=== PATIENT | female | born 1955 | race Caucasian/White ===

== ENCOUNTER 2023-03-31 13:45 | Emergency (ER) | payer OTHER, SELFPAY ==
--- NOTE | 2023-03-31 13:45 | ECG_ITS ---
APPROVED REPORT Exam: Resting ECG HR:60 bpm ECG Measurements Heart Rate 60 AXES DE 202 P 58 QRSd 75 QRS 9 QT 385 T 57 QTc 386 Conclusion SINUS RHYTHM LOW QRS VOLTAGE IN PRECORDIAL LEADS [QRS DEFLECTION < 1.0 mV IN CHEST LEADS] POSSIBLE ANTERIOR MYOCARDIAL INFARCTION , PROBABLY OLD [30 ms Q WAVE IN V3/V4, OR R < 0.2 mV IN V4] BORDERLINE ECG UNCONFIRMED REPORT Electronically signed by : Kj Loyola MD 03/31/2023 17:46:36
[2023-03-31 13:56] VITALS: BP 166/82; PULSE 62; RESP 16; TEMP 36.7; O2SAT 96; BMI 36.3
[2023-03-31 14:00] VITALS: BP 136/74; PULSE 58; RESP 13; O2SAT 95
--- NOTE | 2023-03-31 14:07 | PC.NURSE ---
DR RANGEL AT BEDSIDE
--- NOTE | 2023-03-31 14:16 | XR_ITS ---
FINAL REPORT CLINICAL HISTORY: Shortness of breath, chest pressure COMPARISON: None FINDINGS: A single portable view of the chest was obtained. The heart size and pulmonary vascularity are within normal limits. The mediastinum is within normal limits. No acute pulmonary abnormality is identified. The bony thorax is intact. IMPRESSION: No active cardiopulmonary disease. Reviewed, Interpreted and Dictated by Micha Grimaldo III, MD Transcribed by Yvette Lucero Authenticated and [facility]
--- NOTE | 2023-03-31 14:19 | PC.NURSE ---
RAD at BS
[2023-03-31] MEDS: ASPIRIN 81MG CHEWABLE TABLET 324 MG PO (14:22)
[2023-03-31 14:28] LABS: Basophils # 0.1 K/mm3 (0-0.2); Basophils % 0.8 % (0.1-2.0); Eosinophils # 0.2 K/mm3 (0.0-0.4); Hematocrit 43.4 % (37.0-47.0); Lymphocytes # 3.5 K/mm3 (0.7-4.5); Lymphocytes % 46.2 % (10-50); Mean Corpuscular HGB Conc 34.5 g/dL (31.8-35.4); Mean Corpuscular Volume 92.6 fl (81-99); Mean Platelet Volume 9.2 fl (7.4-10.4); Monocytes # 0.5 K/mm3 (0.1-1.0); Monocytes % 7.2 % (1.7-9.3); Neutrophils # 3.2 K/mm3 (1.8-7.8); Neutrophils % 42.7 % (37.0-80.0); Platelet Count 255 K/mm3 (142-424); Red Blood Count 4.69 M/mm3 (4.20-5.40); Red Cell Distribution Width 13.2 % (11.5-17.5); White Blood Count 7.5 K/mm3 (4.8-10.8)
--- NOTE | 2023-03-31 14:29 | HMH.EDCP ---
Discharge Plan Disposition Patient Disposition: Home, Self-Care Chief Complaint: Chest Pain Prescriptions Prescriptions: No Action lisinopril 20 mg Tablet 20 mg PO DAILY aspirin [Aspir-81] 81 mg Tablet,Delayed Release (Dr/Ec) 81 mg PO DAILY estradiol 1 mg Tablet 1 mg PO DAILY Rx Instructions: off 1 week; repeat cycle paroxetine HCl 20 mg Tablet 20 mg PO DAILY atorvastatin 40 mg Tablet 40 mg PO HS bisoprolol-hydrochlorothiazide 10-6.25 mg Tablet 1 tab PO DAILY dicyclomine 20 mg Tablet 20 mg PO BID tizanidine 2 mg Capsule 2 mg PO DAILY Referrals Follow up/Referrals: Oseas Nur MD [Staff Physician] - See instructions Activity Restrictions/Add. Instructions Additional Instructions/Restrictions: Follow-up with cardiology, information here. Talk to them about likelihood of needing stress test given your symptoms. Call your family doctor to establish care for this visit to the emergency department and schedule follow-up within 48 hours to ensure improvement. If you have any worsening of your condition or any other concerning signs or symptoms, return to the emergency department or your primary care doctor for further evaluation. Clinical Impressions Clinical Impression: Chest pressure, Shortness of breath Discharge ED Provider: Grzegorz Rodríguez [facility] General Chief Complaint: Chest Pain Stated Complaint: Chest Pain Time Seen by Provider: 03/31/23 13:50 Mode of Arrival: Ambulatory Source of Information: Spouse Limitations: No Limitations Description of Symptoms (Recalled from ER Triage Doc. by RN): Pt. states she started having chest pain and a headache yesterday around noon. She felt light headed and took her blood pressure which was slightly elevated and her blood sugar which was 114. She continued ti have intermintint chest pain and headache the remainder of the night and into today. She states the pain is sharp and radiates across her chest. History of Present Illness HPI narrative: 67-year-old history of hypertension, anemia hypothyroidism presenting with chest pressure. States that she started having chest pain 1 day prior to arrival. Associated with headache. She took her blood pressure and it was elevated around 160, thought it might be her blood sugar, although she does not have diabetes, and ate peanut bar crackers. At that time, patient was at catholic and not exerting yourself. Associated with intermittent diaphoresis, nausea without vomiting. She is also feeling short of breath with exertion. Denies positional shortness of breath, PND, orthopnea, lower extremity swelling, or any other concerns. Related Data Home Medications Medication Instructions Recorded Confirmed aspirin 81 mg tablet,delayed 81 mg PO DAILY 03/31/23 03/31/23 release atorvastatin 40 mg tablet 40 mg PO HS 03/31/23 03/31/23 bisoprolol 10 1 tab PO DAILY 03/31/23 03/31/23 mg-hydrochlorothiazide 6.25 mg tablet dicyclomine 20 mg tablet 20 mg PO BID 03/31/23 03/31/23 estradiol 1 mg tablet 1 mg PO DAILY 03/31/23 03/31/23 lisinopril 20 mg tablet 20 mg PO DAILY 03/31/23 03/31/23 paroxetine HCl 20 mg tablet 20 mg PO DAILY 03/31/23 03/31/23 tizanidine 2 mg capsule 2 mg PO DAILY 03/31/23 03/31/23 Allergies Allergy/AdvReac Type Severity Reaction Status Date / Time No Known Allergies Allergy Verified 03/31/23 13:[address] [facility] Disclaimer: The information contained in this section may have been updated after the patient was seen, as this information can be updated by other users. Social History Smoking Status: Never smoker alcohol intake: never current occupational status: unemployed Travel in the last 8 weeks: None ROS Obtained: Yes All systems reviewed & no additional complaints except as documented Physical Exam General General appearance: alert Neck Neck exam: Present trachea midline Chest Chest inspection: Present normal inspection and symmetric chest wall rise Respiratory Respiratory exam: Present normal lung sounds bilaterally; Absent respiratory distress, wheezes, stridor, accessory muscle use or prolonged expiratory phase Cardiovascular Cardiovascular exam: Present regular rate and normal rhythm Extremities Exam Extremities exam: Absent edema Neurological Exam Neurological exam: Present alert, oriented X3 and CN II-XII intact Skin Skin exam: Present warm and dry; Absent cyanosis, diaphoresis or pallor HEART Score HEART Score HEART Score assessment performed?: Yes History (anamnesis): Slightly suspicious ECG: Normal Age: >65 years Risk factors: No known risk factors Troponin: </= normal limit HEART Score: 2 Critical Care Critical Care Time Critical Care Time: No Medical Decision Making Medical Records Medical records reviewed: Yes I reviewed the patient's medical records. Kishan Inquiry Pt receiving controlled substance: No Kishan was queried for this patient: No Vital Signs Vital Signs: 03/31/23 13:56 03/31/23 14:00 03/31/23 14:45 Temperature 98.0 F Temperature Source Oral Pulse Rate 58 L 56 L Pulse Rate [Right Brachial] 62 Respiratory Rate 16 13 15 Blood Pressure 136/74 130/65 Blood Pressure [Right Arm] 166/82 H Blood Pressure Mean 85 94 Blood Pressure Mean [Right Arm] 110 Blood Pressure Source [Right Arm] Automatic Cuff Blood Pressure Position [Right Arm] Sitting 02 Sat by Pulse Oximetry 96 95 95 Oxygen Delivery Method Room Air Lab Data Labs: Lab Results 03/31/23 13:50: WBC 7.5, RBC 4.69, Hgb 15.0, Hct 43.4, MCV 92.6, MCH 32.0 H, MCHC 34.5, RDW 13.2, Plt Count 255, MPV 9.2, Neut % (Auto) 42.7, Lymph % (Auto) 46.2, [place] % (Auto) 7.2, Eos % (Auto) 3.0, Baso % (Auto) 0.8, Neut # (Auto) 3.2, Lymph # (Auto) 3.5, [place] # (Auto) 0.5, Eos # (Auto) 0.2, Baso # (Auto) 0.1, Sodium 134 L, Potassium 4.3, Chloride 100, Carbon Dioxide 31 H, Anion Gap 7.3, BUN 17, Creatinine 0.80, Estimated Creat Clear 78, Estimated GFR 71, Est GFR ( Amer) 86, Glucose 94, Calcium 9.0, Total Bilirubin 0.3, AST 33, ALT 25, Alkaline Phosphatase 63, Troponin I < 0.01, Total Protein 7.2, Albumin 4.2, Globulin 3.0, Albumin/Globulin Ratio 1.4 03/31/23 13:50 03/31/23 13:50 Response Orders (Tests/Meds): ED MEDICATIONS Discontinued Medications Generic Name Dose Route Start Last Admin Trade Name Freq PRN Reason Stop Dose Admin Aspirin 324 mg 03/31/23 14:16 03/31/23 14:22 Aspirin 81mg Chewable Tablet PO 03/31/23 14:17 324 mg ONCE ONE Administration ORDERS Category Date Time Status CXR --portable [XR chest portable] Stat Exams 03/31/23 14:16 Completed CBC w/Auto Diff [Complete Blood Count Auto Diff] Stat Lab 03/31/23 13:50 Completed CMP [Comprehensive Metabolic Panel] Stat Lab 03/31/23 13:50 Completed Trop I [Troponin I] Stat Lab 03/31/23 13:50 Completed Troponin I Q3H Lab 03/31/23 17:30 Ordered Troponin I Q3H Lab 03/31/23 20:30 Ordered MDM Narrative Medical Decision Narrative: 67-year-old history of hypertension, anemia hypothyroidism presenting with chest pressure. States that she started having chest pain 1 day prior to arrival. Associated with headache. She took her blood pressure and it was elevated around 160, thought it might be her blood sugar, although she does not have diabetes, and ate peanut bar crackers. At that time, patient was at catholic and not exerting yourself. Associated with intermittent diaphoresis, nausea without vomiting. She is also feeling short of breath with exertion. Denies positional shortness of breath, PND, orthopnea, lower extremity swelling, or any other concerns. history was obtained via conversation with patient. On arrival, patient hemodynamically stable, alert, oriented x4, appropriate, GCS 15, moving all extremities spontaneously, pupils equal and reactive to light. Full physical exam performed and significant for well-appearing woman in no acute distress. Lungs clear to auscultation bilaterally. Patient does have systolic ejection murmur heard best in right upper sternal border that has minimal radiation to the carotids. No lower extremity edema. Abdomen soft, nontender. Differential includes bronchitis, allergies, valvular abnormality, reactive airway disease, ACS, PA, pneumothorax, PE, dissection, pneumothorax, aortic aneurysm, pneumonia, bronchitis, among others. Patient was given 325 mg aspirin, for symptomatic management and correction of underlying abnormalities. Workup independently interpreted and significant for negative CBC, negative troponin, nonactionable chemistry. Chest x-ray without acute cardiopulmonary airspace disease. See radiology read for full review of final results. Independent interpretation of EKG shows sinus rhythm [address] or T wave changes concerning for acute ischemia. MN, QRS, QT intervals within normal limits. Heart score 2 On reevaluation, patient resting comfortably bed. Given patient presentation, workup, history, this most likely represents stable angina versus other idiopathic shortness of breath. because patient at baseline without signs or symptoms of clinical decompensation, deemed appropriate for discharge. Results were relayed to patient who voiced understanding and were agreeable to outpatient management and follow up. At the time of discharge the patient was hemodynamically stable, tolerating PO, and mobilizing appropriately.
[2023-03-31 14:45] VITALS: BP 130/65; PULSE 56; RESP 15; O2SAT 95
[2023-03-31 14:46] LABS: Alanine Aminotransferase 25 U/L (12-78); Albumin Level 4.2 g/dl (3.5-5.0); Albumin/Globulin Ratio 1.4 (1.1-1.8); Alkaline Phosphatase 63 U/L (38-126); Anion Gap 7.3 mEq/L (5-15); Aspartate Amino Transferase 33 U/L (14-36); Bilirubin,Total 0.3 mg/dl (0.2-1.3); Blood Urea Nitrogen 17 mg/dl (7-17); Carbon Dioxide 31 mmol/L (22.0-30.0); Chloride 100 mmol/L (98-107); Creatinine Clearance Estimated 78 mL/min (50-200); Estimated Glomerular Filt Rate 71 ml/min (>60); GFR (African American) 86 ML/MIN (>60); Glucose 94 mg/dl (74-100); Potassium 4.3 mmoL/L (3.5-5.1); Sodium 134 mmol/L (136-145); Total Protein,Serum 7.2 g/dl (6.3-8.2)
--- NOTE | 2023-03-31 14:49 | PC.NURSE ---
Rounded on pt. No needs or complaints voiced. Call light within reach.
[2023-03-31 15:15] LABS: Troponin I < 0.01 ng/ml (0.00-0.034)
[2023-03-31 15:25] VITALS: BP 121/68; PULSE 55; RESP 16; TEMP 36.7; O2SAT 98
== END 2023-03-31 15:38 | disposition home or self-care (01) ==
PROVIDERS: Emergency Provider Emergency Medicine
DX: R07.9 Chest pain, unspecified (principal); R51.9 Headache, unspecified; R06.02 Shortness of breath; I10 Essential (primary) hypertension; E03.9 Hypothyroidism, unspecified
CPT/HCPCS: 71045; 80053; 84484; 85025; 93005; 99285

== ENCOUNTER 2023-04-02 15:25 | Outpatient (CLI) | payer OTHER, SELFPAY ==
--- NOTE | 2023-04-02 15:34 | CT_ITS ---
PROCEDURE INFORMATION: Exam: CTA Head With Contrast, Arteriography Exam date and time: 04/02/2023 4:21 PM Age: 67 years old Clinical indication: Pain; Headache; Additional info: R51.9 - headache, unspecified TECHNIQUE: Imaging protocol: Computed tomographic angiography of the head with contrast. Exam focused on the arteries. 3D rendering (Not supervised by radiologist): MIP and/or 3D reconstructed images were created by the technologist. Radiation optimization: All CT scans at this facility use at least one of these dose optimization techniques: automated exposure control; mA and/or kV adjustment per patient size (includes targeted exams where dose is matched to clinical indication); or iterative reconstruction. Contrast material: ISOVUE 370; Contrast volume: 100 ml; Contrast route: INTRAVENOUS (IV); COMPARISON: CT HEAD/BRAIN WO CON 04/02/2023 4:17 PM FINDINGS: ANTERIOR CIRCULATION: Right internal carotid artery: Mild calcification involving the right carotid siphon without stenosis. Right middle cerebral artery: No occlusion or significant stenosis. No aneurysm. Right anterior cerebral artery: No occlusion or significant stenosis. No aneurysm. Left internal carotid artery: Mild calcification involving the left carotid siphon without stenosis. Left middle cerebral artery: No occlusion or significant stenosis. No aneurysm. Left anterior cerebral artery: No occlusion or significant stenosis. No aneurysm. POSTERIOR CIRCULATION: Right vertebral artery: No occlusion or significant stenosis. No aneurysm. Left vertebral artery: No occlusion or significant stenosis. No aneurysm. Basilar artery: No occlusion or significant stenosis. No aneurysm. Right posterior cerebral artery: No occlusion or significant stenosis. No aneurysm. Left posterior cerebral artery: No occlusion or significant stenosis. No aneurysm. IMPRESSION: Unremarkable CTA of the intracranial circulation.
--- NOTE | 2023-04-02 15:34 | CT_ITS ---
PROCEDURE INFORMATION: Exam: CTA Neck With Contrast Exam date and time: 04/02/2023 4:21 PM Age: 67 years old Clinical indication: Pain; Headache; Additional info: Headache, R/O CVA, HTN TECHNIQUE: Imaging protocol: Computed tomographic angiography of the neck with contrast. Exam focused on the cervical segments of the vasculature. 3D rendering (Not supervised by radiologist): MIP and/or 3D reconstructed images were created by the technologist. Radiation optimization: All CT scans at this facility use at least one of these dose optimization techniques: automated exposure control; mA and/or kV adjustment per patient size (includes targeted exams where dose is matched to clinical indication); or iterative reconstruction. Contrast material: ISOVUE 370; Contrast volume: 100 ml; Contrast route: INTRAVENOUS (IV); COMPARISON: CT ANGIO HEAD 04/02/2023 4:21 PM FINDINGS: Limitations: Limited by artifact arising from metallic dental hardware/dental amalgam. Right common carotid artery: Calcification at the right common carotid bifurcation without hemodynamically significant stenosis. Right internal carotid artery: No stenosis of the extracranial segment. No dissection or occlusion. Right external carotid artery: No occlusion or stenosis of the origin. Left common carotid artery: Calcification and plaquing at the distal left common carotid artery without hemodynamically significant stenosis. Left internal carotid artery: No stenosis of the extracranial segment. No dissection or occlusion. Left external carotid artery: No occlusion or stenosis of the origin. Right vertebral artery: No stenosis. No dissection or occlusion. Left vertebral artery: Left vertebral artery is dominant. Soft tissues: Normal. No significant soft tissue swelling. Bones/joints: Degenerative change involving the spine. IMPRESSION: No hemodynamically significant stenosis. REFERENCES: NASCET CRITERIA. The degree of stenosis in the cervical segment of the internal carotid artery is based on NASCET criteria. Normal is no stenosis. Mild is less than 50% stenosis. Moderate is 50-69% stenosis. Severe is 70% to 99% stenosis. Total occlusion is no detectable patent lumen.
--- NOTE | 2023-04-02 15:50 | CT_ITS ---
PROCEDURE INFORMATION: Exam: CT Head Without Contrast Exam date and time: 04/02/2023 4:17 PM Age: 67 years old Clinical indication: Pain; Headache not specified; Additional info: ESPINOZA. . R/O CVA TECHNIQUE: Imaging protocol: Computed tomography of the head without contrast. Radiation optimization: All CT scans at this facility use at least one of these dose optimization techniques: automated exposure control; mA and/or kV adjustment per patient size (includes targeted exams where dose is matched to clinical indication); or iterative reconstruction. COMPARISON: No relevant prior studies available. FINDINGS: Brain: Age-related volume loss. Mild decreased attenuation of the supratentorial white matter is likely secondary to chronic microvascular ischemia. No acute intracranial hemorrhage, midline shift or intracranial mass effect. Cerebral ventricles: Ventriculomegaly is commensurate for degree of volume loss. Paranasal sinuses: Visualized sinuses are unremarkable. No fluid levels. Mastoid air cells: Visualized mastoid air cells are well aerated. Bones/joints: Unremarkable. No acute fracture. Soft tissues: Unremarkable. IMPRESSION: No acute intracranial abnormality.
[2023-04-02 16:53] LABS: Basophils % 0.6 % (0.1-2.0); Eosinophils # 0.2 K/mm3 (0.0-0.4); Eosinophils % 3.2 % (0.1-12.0); Hematocrit 42.4 % (37.0-47.0); Hemoglobin 14.3 g/dL (12.2-16.2); Lymphocytes # 3.4 K/mm3 (0.7-4.5); Lymphocytes % 48.7 % (10-50); Mean Corpuscular HGB Conc 33.9 g/dL (31.8-35.4); Mean Corpuscular Hemoglobin 31.6 pg (27.0-31.2); Mean Corpuscular Volume 93.2 fl (81-99); Mean Platelet Volume 9.2 fl (7.4-10.4); Monocytes # 0.5 K/mm3 (0.1-1.0); Monocytes % 6.4 % (1.7-9.3); Neutrophils # 2.9 K/mm3 (1.8-7.8); Neutrophils % 41.1 % (37.0-80.0); Platelet Count 223 K/mm3 (142-424); Red Blood Count 4.54 M/mm3 (4.20-5.40); Red Cell Distribution Width 13.4 % (11.5-17.5); White Blood Count 7.1 K/mm3 (4.8-10.8)
[2023-04-02 17:21] LABS: Chloride 98 mmol/L (98-107); Sodium 132 mmol/L (136-145)
[2023-04-02 17:22] LABS: Potassium 4.6 mmoL/L (3.5-5.1)
[2023-04-02 17:24] LABS: Alanine Aminotransferase 21 U/L (12-78); Albumin Level 3.9 g/dl (3.5-5.0); Alkaline Phosphatase 62 U/L (38-126); Anion Gap 10.6 mEq/L (5-15); Aspartate Amino Transferase 26 U/L (14-36); Bilirubin,Indirect 0.5 mg/dL (0.0-0.9); Bilirubin,Total 0.5 mg/dl (0.2-1.3); Bilirubin,Unconjugated 0.5 mg/dL (0.0-1.1); Blood Urea Nitrogen 18 mg/dl (7-17); Calcium 8.8 mg/dl (8.4-10.2); Carbon Dioxide 28 mmol/L (22.0-30.0); Cholesterol 203 mg/dl (140-200); Estimated Glomerular Filt Rate 71 ml/min (>60); GFR (African American) 86 ML/MIN (>60); Glucose 92 mg/dl (74-100); Total Protein,Serum 6.3 g/dl (6.3-8.2)
[2023-04-02 17:25] LABS: Chol/HDL Ratio 5.6 (1-3.5); HDL Cholesterol 36 mg/dl (40-60); Magnesium 1.7 mg/dl (1.6-2.3)
[2023-04-02 17:28] LABS: Triglycerides 464 mg/dl (30-150)
[2023-04-02 17:35] LABS: Direct LDL Cholesterol 81.51 mg/dL (100-129)
[2023-04-02 17:38] LABS: Troponin I < 0.01 ng/ml (0.00-0.034)
[2023-04-02 17:56] LABS: Thyroid Stimulating Hormone 2.69 uIU/mL (0.465-4.68)
[2023-04-02 17:57] LABS: Free T4 (Free Thyroxine) 0.62 ng/dl (0.78-2.19)
== END 2023-04-02 23:59 ==
LOC: RAD 15:26
PROVIDERS: Nurse Practitioner; Visit Provider Internal Medicine
DX: I10 Essential (primary) hypertension (principal); I20.89 Other forms of angina pectoris; R00.2 Palpitations; R06.00 Dyspnea, unspecified; R51.9 Headache, unspecified; R53.83 Other fatigue
CPT/HCPCS: 36415; 70450; 70496; 70498; 80048; 80061; 80076; 83735; 84439; 84443; 84484; 85025; 93225

== ENCOUNTER 2023-04-28 11:02 | Outpatient (CLI) | payer MEDICARE, SELFPAY ==
--- NOTE | 2023-04-28 11:02 | NM_ITS ---
APPROVED REPORT Exam: Nuclear Stress Test Indication: Chest pain, SOB, Fatigue, HTN, High cholesterol, Family history Patient Location: Outpatient Stress Tech: Love Sterling NM Tech:Belén Hermosillo, ARRT, RT (R)(N) Ht: 5 ft 3 in Wt: 205 lbs Bra Size: 40C HR: 63 bpm BP: 138/80 mmHg BSA: 1.95 m2 Rhythm: NSR TID: 1.30 BMI: 36.3 History: Chest pain, SOB, Fatigue, HTN, High cholesterol, Family history Procedure: Patient received 0.4 mg of intravenous Lexiscan, resting heart rate 63 bpm, resting blood pressure 138/80 mmHg, with Lexiscan maximum heart rate achieved was 100 bpm which is % of the maximum predicted heart rate and blood pressure was 174/80 mmHg. With Lexiscan, patient denied any complaint of chest pain. Cardiac Stress and Resting SPECT Images: Cardiac Stress and Resting SPECT images were obtained using technetium 99m Myoview 30.1 mCi stress and 10.68 mCi at rest. Resting and stress imaging in supine and prone positions demonstrate no evidence of focal fixed or reversible perfusion defects. There is increased transient ischemic dilatation ratio (TID 1.30), suggestive of possible multivessel disease or balanced ischemia. Gated imaging demonstrates normal global and regional LV systolic function. LVEF is calculated at 69%. Conclusion: No evidence of focal fixed or reversible perfusion defects. There is increased transient ischemic dilatation ratio (TID 1.30), suggestive of possible multivessel disease or balanced ischemia. Gated imaging demonstrates normal global and regional LV systolic function. LVEF is calculated at 69%. Electronically signed by : Zuleika Nelson MD 04/30/2023 13:23:10
[2023-04-28] MEDS: SODIUM CHLORIDE 0.9% 10ML SYR (RAD ONLY) 10 ML IV ×2 (13:32)
[2023-04-28] MEDS: ISOTOPE MYOVIEW (PER STUDY) 1 DOSE IV (13:32)
[2023-04-28] MEDS: REGADENOSON 0.4MG/5ML SYRINGE 0.400000000000000022 MG IV (13:32)
--- NOTE | 2023-04-28 14:27 | CA_ITS ---
APPROVED REPORT Exam: Pharmacologic Technologist: Nidia Barron, Ht: 5 ft 3 in Wt: 207 lbs BSA: 1.96 m2 HR: 56 bpm BP: 138/80 mmHg Rhythm: NSR Medical History Medications: Atorvastatin,,,,, PaROXETINE,,,,, Tizanidine,,,,, DicyCLOMINE,,,,, Estradilol,,,,, Asprin,,,,, BisOPROLOL - HCTZ,,,,, LiNsinopril,,,,, Stress Test Details Test: LEXISCAN Reason for pharmacologic stress test: physical limitation. HR Resting HR: 63 bpm Max Heart Rate (APMHR): 151 bpm Max HR Achieved: 100 bpm Target HR (85% APMHR): 128 bpm % of APMHR: 66 Recovery HR: 79 bpm BP Resting BP: 138.0/80.0 mmHg Max BP: 174.0/80.0 mmHg Recovery BP: 146.0/76.0 mmHg BP response to stress: Normal blood pressure response to stress. ECG Resting ECG: NSR Stress ECG: No significant ST changes Arrhythmia: None Clinical Exercise duration: 03:59 min Highest Stage Achieved: Exercise capacity: 1.0 METs Stress ECG Conclusion Symptoms: SOB with Lexiscan infusion. Arrhythmias/Ectopy: None ST-T Changes: No EKG changes with Lexiscan. Conclusion: Unremarkable Lexiscan stress test. Myoview images reported separately. Test Summary REST 22:27 . . 63 . 138/ 80 . . Stage 1 . . . . . . . Cardiolite injected Stage 1 01:00 . . 93 . . . . Stage 2 01:00 . . 85 . 169/ 98 . . Stage 3 01:00 . . 80 . 174/ 80 . . Stage 4 00:59 . . 75 . 164/ 76 . Stop exercise at 03:59 RECOVERY 01:00 . . 79 . . . . RECOVERY 02:00 . . 78 . 156/ 78 . . RECOVERY 02:29 . . 72 . 146/ 76 . . Electronically signed by : Zuleika Nelson MD 04/30/2023 13:21:53
== END 2023-04-28 23:59 ==
LOC: RAD 11:02
PROVIDERS: Visit Provider Nurse Practitioner
DX: I10 Essential (primary) hypertension (principal); I20.89 Other forms of angina pectoris; R00.2 Palpitations; R06.00 Dyspnea, unspecified; R51.9 Headache, unspecified; R53.83 Other fatigue
CPT/HCPCS: 78452; 93017; 93018; A9502; J2785

== ENCOUNTER 2023-05-01 14:44 | Outpatient (CLI) | payer MEDICARE, SELFPAY | END 2023-05-01 23:59 | LOC: RT 14:45 | PROVIDERS: Visit Provider Nurse Practitioner | DX: I10 Essential (primary) hypertension (principal); I20.89 Other forms of angina pectoris; R00.2 Palpitations; R06.00 Dyspnea, unspecified; R51.9 Headache, unspecified; R53.83 Other fatigue | CPT/HCPCS: 93270 ==

== ENCOUNTER 2023-05-15 08:16 | Day surgery (SDC) | payer MEDICARE, SELFPAY ==
[2023-05-15] VITALS (14 sets, daily range): BP systolic 100–152; BP diastolic 57–81; PULSE 57–75; RESP 14–19; TEMP 37; O2SAT 91–98; BMI 36.8
--- NOTE | 2023-05-15 07:10 | IR_ITS ---
APPROVED REPORT Patient Location: Outpatient Structural Worker: MARC Leyva RT (R) PROCEDURES Left heart catheterization Left ventriculogram Selective coronary angiogram INDICATION High risk abnormal Myoview, Angina pectoris, Informed consent was obtained prior to the procedure. COMPLICATIONS NONE Estimated Blood Loss: LESS THAN 10 ML TECHNIQUE One percent lidocaine used to anesthetize the right anterior aspect of the wrist. The right radial artery was accessed via the Seldinger technique. A 6 Sudanese sheath was placed in the right radial artery. 2.5 mg of Verapamil, 800 mcg of nitroglycerin, 1mg Lidocaine and 5000 U Heparin were given through the arterial sheath. The papa catheter was also used to perform left heart catheterization, left ventriculogram and selective coronary angiogram. At the end of the procedure the sheath was removed good hemostasis was achieved using Traclet band, patient was transferred to the postop holding area in stable condition. ANGIOGRAPHIC RESULTS The left main artery Normal The left anterior descending artery Has proximal tandem 30% concentric stenoses with remaining vessel being normal The circumflex artery Nondominant yet still large and normal The right coronary artery Massively large dominant highly tortuous with scattered 10 to 20% stenoses The BRUNO ventriculogram reveals Hyperdynamic at 70 to 75% The left ventricular end-diastolic pressure 15 to 20 mmHg IMPRESSION Mild nonflow limiting coronary artery disease as described above confined mostly to the proximal LAD Hyperdynamic ventricle Elevated LVEDP PLAN 1. Aggressive risk factor modification Electronically signed by : Oseas Nur MD 05/15/2023 10:46:50
--- NOTE | 2023-05-15 08:20 | CA_ITS ---
APPROVED REPORT EXAM: Comprehensive 2D, Doppler, and color-flow Echocardiogram Eyeglass Frame Truer: DANNI Vazquez, RVS Ht: 5 ft 3 in Wt: 207lbs BSA: 1.96 BP: 143/74 mmHg Indications: Murmur, Angina, dyspnea, Palpitations, CP, HTN 2D Dimensions IVSd 0.84 cm LVEF (Visual) 61.60 % PWd 0.87 cm LVDd 4.86 cm LVDs 3.25 cm Left Atrium 3.05 cm M-Mode Dimensions RVDd 2.16 cm (0.9-2.6) LA Diam 3.13 cm (1.9-4.0) LVDd 4.63 cm (3.5-5.7) LVDs 3.19 cm (3.5-5.7) IVSd 0.91 cm (0.6-1.1) PWd 0.83 cm (0.6-1.1) EF (Teich) 58.90% EPSs 0.69 cm FS 31.10% EDV (Teich) 98.80 mL TAPSE 2.02 (<1.7) ESV (Teich) 40.60 mL LV Diastology E Decel Time 300 (160-240 msec) E/A Ratio 0.64 MED A' 8.60 cm/s LAT A' 11.60 cm/s Aortic Valve SHERRY Index 0.79 cm2/m2 AoV Peak Dilip. 246.0 (50-130 cm/s) AI PHT 575.00 ms AO Peak GR. 24.30 mmHg AO Mean GR. 11.40 (<5 mmHg) AO VTI 59.4 (18-25 cm) SHERRY (VTI) 1.59 (2.5-4.5 cm2) Mitral Valve MV A Velocity 115.0 (40-130 cm/s) E/A Ratio 0.64 MV Mean Gr. 1.90 (<2mmHg) Left Ventricle The left ventricle is normal size. The left ventricular systolic function is normal. The left ventricular ejection fraction is within the normal range. There is increased LV wall thickness. There is normal LV segmental wall motion. Transmitral Doppler flow pattern suggests impaired LV relaxation. LVEF is 60%. Right Ventricle The right ventricle is normal size. The right ventricular systolic function is normal. Atria The left atrium size is normal. The right atrium size is normal. The interatrial septum is not well-visualized. Aortic Valve The aortic valve is mildly thickened. Mild aortic stenosis. Peak velocity 2.5 m/s. Mean AV gradient 11 mmHg. Max AV gradient 24 mmHg. SHERRY by continuity equation is 1.6 cm???. Mild aortic regurgitation. Mitral Valve The mitral valve is mildly thickened. No evidence of mitral valve stenosis. Trace mitral regurgitation. Tricuspid Valve The tricuspid valve leaflets are thin and pliable. Trace tricuspid regurgitation. There is insufficient TR jet to estimate RVSP. Pulmonic Valve The pulmonary valve is normal in structure. Trace pulmonic regurgitation. Great Vessels The aortic root is normal in size. The ascending aorta is normal in size. IVC is normal in size and collapses >50% with inspiration. Pericardium There is no pericardial effusion. Other Information Study Quality: Fair Conclusion Normal biventricular systolic function. Mild AI. Mild (peak velocity 2.5 m/s. Mean AV gradient 11 mmHg. Max AV gradient 24 mmHg. SHERRY by continuity equation is 1.6 cm???). Electronically signed by : Zuleika Nelson MD 05/18/2023 00:45:20
[2023-05-15 09:33] LABS: Basophils # 0.1 K/mm3 (0-0.2); Basophils % 1.1 % (0.1-2.0); Eosinophils # 0.3 K/mm3 (0.0-0.4); Eosinophils % 3.6 % (0.1-12.0); Hematocrit 44.1 % (37.0-47.0); Hemoglobin 14.7 g/dL (12.2-16.2); Lymphocytes # 3.3 K/mm3 (0.7-4.5); Lymphocytes % 46.9 % (10-50); Mean Corpuscular HGB Conc 33.3 g/dL (31.8-35.4); Mean Corpuscular Hemoglobin 31.7 pg (27.0-31.2); Mean Corpuscular Volume 95.2 fl (81-99); Mean Platelet Volume 9.1 fl (7.4-10.4); Monocytes # 0.5 K/mm3 (0.1-1.0); Monocytes % 6.7 % (1.7-9.3); Neutrophils # 2.9 K/mm3 (1.8-7.8); Neutrophils % 41.7 % (37.0-80.0); Platelet Count 225 K/mm3 (142-424); Red Blood Count 4.63 M/mm3 (4.20-5.40); Red Cell Distribution Width 13.1 % (11.5-17.5)
[2023-05-15 09:45] LABS: Anion Gap 9.3 mEq/L (5-15); Blood Urea Nitrogen 17 mg/dl (7-17); Calcium 9.2 mg/dl (8.4-10.2); Carbon Dioxide 27 mmol/L (22.0-30.0); Chloride 105 mmol/L (98-107); Creatinine Clearance Estimated 79 mL/min (50-200); Estimated Glomerular Filt Rate 71 ml/min (>60); GFR (African American) 86 ML/MIN (>60); Glucose 102 mg/dl (74-100); Potassium 4.3 mmoL/L (3.5-5.1); Sodium 137 mmol/L (136-145)
[2023-05-15] MEDS: HEPARIN 1,000 UNITS/500ML NS (CATH LAB) 3000 UNIT IV (10:20)
[2023-05-15] MEDS: LIDOCAINE 1% 10ML MDV 20 ML IJ (10:21)
[2023-05-15] MEDS: VERAPAMIL 2.5MG/ML 2ML VIAL 2.5 MG IV (10:21)
[2023-05-15] MEDS: NITROGLYCERIN 800MCG/8ML SYR (CATH LAB) 800 MCG IA (10:21)
[2023-05-15] MEDS: HEPARIN 1,000 UNITS/ML 10ML VIAL (CATH LAB) 10000 UNIT IV (10:21)
[2023-05-15] MEDS: 0.9 % SODIUM CHLORIDE 500 ML 25 ML IV (10:21)
[2023-05-15] MEDS: diphenhydrAMINE 50MG/ML VIAL 50 MG IV (10:21)
[2023-05-15] MEDS: MIDAZOLAM HCL 1MG/1ML 5ML VIAL 1 MG IV (10:41)
[2023-05-15] MEDS: FENTANYL 100MCG/2ML VIAL 50 MCG IV (10:41)
[2023-05-15] MEDS: IOPAMIDOL-370 (76%);100ML BOTTLE 50 ML IV (10:57)
== END 2023-05-15 13:43 | disposition home or self-care (01) ==
PROVIDERS: Visit Provider Internal Medicine
DX: I10 Essential (primary) hypertension (principal); I25.118 Atherosclerotic heart disease of native coronary artery with other forms of angina pectoris; R00.2 Palpitations; R06.00 Dyspnea, unspecified; R53.83 Other fatigue; R51.9 Headache, unspecified; Z79.899 Other long term (current) drug therapy
CPT/HCPCS: 80048; 85025; 93306; 93458; 99152; C1725; C1769; J1644; Q9967

== ENCOUNTER → 2023-06-30 07:57 | Outpatient (CLI) | payer MEDICARE, SELFPAY | LOC: SL 07:57 | PROVIDERS: Visit Provider Physician Assistant | DX: G47.30 Sleep apnea, unspecified (principal); R40.0 Somnolence; R06.83 Snoring | CPT/HCPCS: G0399 ==

== ENCOUNTER 2023-07-16 11:21 | Outpatient (CLI) | payer MEDICARE, SELFPAY ==
--- NOTE | 2023-07-16 | US_ITS ---
FINAL REPORT CLINICAL HISTORY: CLAUDICATION,HTN,HLD,EX SMOKER,REST PAIN COMPARISON: None FINDINGS: ANKLE-BRACHIAL PRESSURE INDICES Pressure indices are as follows: RIGHT LOWER EXTREMITY: Ankle-brachial pressure index: 1.08 Comments: Normal LEFT LOWER EXTREMITY: Ankle-brachial pressure index: 1.14 Comments: Normal CONCLUSION: No evidence of significant obstructive peripheral vascular disease of the lower extremities Reviewed, Interpreted and Dictated by Jaswant Villarreal MD Transcribed by Apoorva Romo Authenticated and [facility]
== END 2023-07-16 23:59 | disposition home or self-care (01) ==
LOC: RT 11:21
PROVIDERS: PCP Nurse Practitioner Family; Visit Provider Nurse Practitioner Family
DX: I70.213 Atherosclerosis of native arteries of extremities with intermittent claudication, bilateral legs (principal); R20.8 Other disturbances of skin sensation; I10 Essential (primary) hypertension
CPT/HCPCS: 93923

== ENCOUNTER 2023-09-12 14:22 | Outpatient (CLI) | payer MEDICARE, SELFPAY ==
--- NOTE | 2023-09-12 14:32 | XR_ITS ---
FINAL REPORT CLINICAL HISTORY: Foot pain; c/o left heel pain, warm to the touch FINDINGS: Three views show no evidence of acute displaced fracture or dislocation of the visualized bony architecture. The joint spaces appear normal. Mild calcaneal spurring is identified. IMPRESSION: No acute process. Reviewed, Interpreted and Dictated by Leydi Stone MD Transcribed by Josephine Bishop Authenticated and . [facility]
--- NOTE | 2023-09-12 14:32 | XR_ITS ---
FINAL REPORT CLINICAL HISTORY: Foot pain; c/o left heel pain, warm to the touch FINDINGS: Three views show no evidence of acute displaced fracture or dislocation of the visualized bony architecture. The joint spaces appear normal. Minimal calcaneal spurring is identified. IMPRESSION: Unremarkable exam. Reviewed, Interpreted and Dictated by Leydi Stone MD Transcribed by Josephine Bishop Authenticated and [facility]
== END 2023-09-12 23:59 | disposition home or self-care (01) ==
LOC: RAD 14:28
PROVIDERS: PCP Nurse Practitioner Family; Visit Provider Nurse Practitioner Family
DX: M79.671 Pain in right foot; M79.672 Pain in left foot
CPT/HCPCS: 73630

== ENCOUNTER 2023-11-26 13:41 | Observation (INO) | payer MEDICARE, SELFPAY ==
[2023-11-26] VITALS (11 sets, daily range): BP systolic 111–167; BP diastolic 59–81; PULSE 55–70; RESP 16–18; TEMP 36.6–36.8; O2SAT 93–98; BMI 36.1
--- NOTE | 2023-11-26 13:43 | ECG_ITS ---
APPROVED REPORT Exam: Resting ECG HR:64 bpm ECG Measurements Heart Rate 64 AXES VA 179 P 62 QRSd 84 QRS 30 QT 397 T 59 QTc 406 Conclusion SINUS RHYTHM LOW QRS VOLTAGE IN PRECORDIAL LEADS [QRS DEFLECTION < 1.0 mV IN CHEST LEADS] ANTERIOR MYOCARDIAL INFARCTION , PROBABLY OLD [40+ ms Q WAVE AND/OR ST/T ABNORMALITY IN V3/V4] ABNORMAL ECG UNCONFIRMED REPORT Electronically signed by : JOSH GARDUNO, 11/26/2023 15:42:48
--- NOTE | 2023-11-26 13:57 | XR_ITS ---
FINAL REPORT CLINICAL HISTORY: Nonspecific chest pain COMPARISON: 03/31/2023 FINDINGS: Two views of the chest were obtained. The heart size and pulmonary vascularity are within normal limits. The mediastinum is normal. There are mild right base opacities which may represent atelectasis or pneumonia. There is no pneumothorax. The bony thorax is intact. IMPRESSION: Right base opacities may represent atelectasis or pneumonia. Reviewed, Interpreted and Dictated by Micha Grimaldo III, MD Transcribed by Lamar Bashir Authenticated and [facility]
[2023-11-26 14:04] LABS: Basophils # 0.1 K/mm3 (0-0.2); Basophils % 1.5 % (0.1-2.0); Eosinophils # 0.3 K/mm3 (0.0-0.4); Hematocrit 43.4 % (37.0-47.0); Hemoglobin 14.1 g/dL (12.2-16.2); Lymphocytes # 3.3 K/mm3 (0.7-4.5); Mean Corpuscular HGB Conc 32.6 g/dL (31.8-35.4); Mean Corpuscular Hemoglobin 31.3 pg (27.0-31.2); Mean Platelet Volume 8.9 fl (7.4-10.4); Monocytes # 0.7 K/mm3 (0.1-1.0); Monocytes % 10.3 % (1.7-9.3); Neutrophils # 2.3 K/mm3 (1.8-7.8); Neutrophils % 35.1 % (37.0-80.0); Platelet Count 276 K/mm3 (142-424); Red Blood Count 4.52 M/mm3 (4.20-5.40); White Blood Count 6.7 K/mm3 (4.8-10.8)
--- NOTE | 2023-11-26 14:05 | HMH.EDCP ---
Discharge Plan Disposition Patient Disposition: Admitted Condition: Good Prescriptions Prescriptions: No Action Eliquis 5 mg tablet 5 mg PO BID Qty: 60 2RF hydrochlorothiazide 12.5 mg capsule 12.5 mg PO DAILY cyanocobalamin (vitamin B-12) 1,000 mcg capsule 1,000 mcg PO QDAY diclofenac sodium 1 % gel 4 g topical QID PRN (Reason: pain ) Qty: 100 2RF Rx Instructions: apply to single knee, ankle, foot; for foot includes sole/toes/top of foot lisinopril 40 mg tablet 40 mg PO DAILY Qty: 90 3RF bisoprolol fumarate 10 mg tablet See Rx Instructions .ROUTE .COMPLEX Qty: 180 3RF Dose Instruction: TAKE TWO TABLETS BY MOUTH EVERY DAY Rx Instructions: TAKE TWO TABLETS BY MOUTH EVERY DAY estradiol 1 mg Tablet 1 mg PO DAILY Rx Instructions: off 1 week; repeat cycle paroxetine HCl 20 mg Tablet 20 mg PO DAILY atorvastatin 40 mg Tablet 40 mg PO HS dicyclomine 20 mg Tablet 20 mg PO BID tizanidine 2 mg Capsule 2 mg PO DAILY Referrals Follow up/Referrals: Provider,Referral, [Referring] - See instructions Clinical Impressions Clinical Impression: Dizziness, Ataxia Print Language Print Language: Tamazight Discharge ED Provider: Mirian Campbell HPI <ALEX Sloan - Last Filed: 11/26/23 17:20> General Chief Complaint: Chest Pain Stated Complaint: chest pain Time Seen by Provider: 11/26/23 14:05 Mode of Arrival: Ambulatory Source of Information: Patient Limitations: No Limitations Description of Symptoms (Recalled from ER Triage Doc. by RN): PT REPORTS CHEST PAIN AT REST, STARTED ABOUT 1100. PT HAD JUST FINISHED LUNCH AND WAS PAYING BILLS. REPORTS PAIN RADIATED TO NECK. PAIN IS SHARP IN NATURE. REPORTS SHORTNESS OF BREATH History of Present Illness HPI narrative: Patient presents for evaluation of chest pain that began at 11 AM this morning. She has had a full cardiac workup in April of this year including catheterization which is included below. Patient states however she has a headache today associated with pain radiating up into her right jaw which is new. She denies shortness of breath nausea vomiting diarrhea hemoptysis hematochezia melena hematemesis fever. ANGIOGRAPHIC RESULTS The left main artery Normal The left anterior descending artery Has proximal tandem 30% concentric stenoses with remaining vessel being normal The circumflex artery Nondominant yet still large and normal The right coronary artery Massively large dominant highly tortuous with scattered 10 to 20% stenoses The BRUNO ventriculogram reveals Hyperdynamic at 70 to 75% The left ventricular end-diastolic pressure 15 to 20 mmHg IMPRESSION Mild nonflow limiting coronary artery disease as described above confined mostly to the proximal LAD Hyperdynamic ventricle Elevated LVEDP Related Data Home Medications ?Medication ?Instructions ?Recorded ?Confirmed atorvastatin 40 mg tablet 40 mg PO HS 03/31/23 09/15/23 dicyclomine 20 mg tablet 20 mg PO BID 03/31/23 09/15/23 estradiol 1 mg tablet 1 mg PO DAILY 03/31/23 09/15/23 paroxetine HCl 20 mg tablet 20 mg PO DAILY 03/31/23 09/15/23 tizanidine 2 mg capsule 2 mg PO DAILY 03/31/23 09/15/23 cyanocobalamin (vitamin B-12) 1,000 mcg PO QDAY 09/15/23 09/15/23 1,000 mcg capsule hydrochlorothiazide 12.5 mg capsule 12.5 mg PO DAILY 09/15/23 09/15/23 Previous Rx's ?Medication ?Instructions ?Recorded lisinopril 40 mg tablet 40 mg PO DAILY #90 tabs 04/02/23 apixaban 5 mg tablet (Eliquis) 5 mg PO BID #60 tabs 05/26/23 diclofenac sodium 1 % topical gel 4 g topical QID PRN pain #100 09/15/23 grams bisoprolol fumarate 10 mg tablet See Rx Instructions .Route 10/23/23 .COMPLEX #180 tabs Allergies Allergy/AdvReac Type Severity Reaction Status Date / Time No Known Allergies Allergy Verified 09/15/23 15:05 [facility] <ALEX Sloan - Last Filed: 11/26/23 17:20> [facility] Disclaimer: The information conta
--- NOTE | 2023-11-26 14:05 | PC.NURSE ---
Pt gone to RAD via wheelchair
--- NOTE | 2023-11-26 14:08 | PC.NURSE ---
Pt returned from RAD
[2023-11-26 14:09] LABS: Albumin Level 4.2 g/dl (3.5-5.0); Chloride 104 mmol/L (98-107)
[2023-11-26 14:10] LABS: Potassium 4.1 mmoL/L (3.5-5.1); Sodium 136 mmol/L (136-145)
[2023-11-26 14:12] LABS: Blood Urea Nitrogen 15 mg/dl (7-17); Creatinine Clearance Estimated 76 mL/min (50-200); Estimated Glomerular Filt Rate 55 ml/min (>60); GFR (African American) 66 ML/MIN (>60)
[2023-11-26 14:13] LABS: Alanine Aminotransferase 30 U/L (12-78); Albumin/Globulin Ratio 1.4 (1.1-1.8); Alkaline Phosphatase 64 U/L (38-126); Anion Gap 8.1 mEq/L (5-15); Aspartate Amino Transferase 35 U/L (14-36); Bilirubin,Total 0.6 mg/dl (0.2-1.3); Calcium 8.9 mg/dl (8.4-10.2); Carbon Dioxide 28 mmol/L (22.0-30.0); Globulin 2.9 g/dL (1.3-3.2); Glucose 111 mg/dl (74-100); Total Protein,Serum 7.1 g/dl (6.3-8.2)
[2023-11-26 14:29] LABS: Troponin I < 0.01 ng/ml (0.00-0.034)
[2023-11-26 14:35] LABS: Magnesium 1.9 mg/dl (1.6-2.3)
--- NOTE | 2023-11-26 15:43 | CT_ITS ---
FINAL REPORT CLINICAL HISTORY: Headache ataxia COMPARISON: None FINDINGS: Axial images of the head were obtained without contrast. Coronal and sagittal reformatted images were also obtained. This study was performed with techniques to keep radiation doses as low as reasonably achievable (ALARA). Individualized dose reduction techniques using automated exposure control or adjustment of mA and/or kV according to the patient's size were employed. There is mild generalized age appropriate atrophy. There is no evidence of intracranial hemorrhage or mass. The ventricular size is within normal limits. There is no evidence of shift of the midline structures. No skull abnormality is seen on the bone window images. IMPRESSION: No acute intracranial abnormality. Reviewed, Interpreted and Dictated by Micha Grimaldo III, MD Transcribed by Apoorva Romo Authenticated and [facility]
--- NOTE | 2023-11-26 15:43 | CT_ITS ---
FINAL REPORT TECHNIQUE: Thin section axial CT with IV contrast supplemented with multiplanar reconstruction under CT angiogram protocol. 3-D reconstructions were performed. This study was performed with techniques to keep radiation doses as low as reasonably achievable (ALARA). Individualized dose reduction techniques using automated exposure control or adjustment of mA and/or kV according to the patient's size were employed. CLINICAL HISTORY: Headache, ataxia COMPARISON: None FINDINGS: The distal vertebral, basilar and distal internal carotid arteries have an unremarkable appearance. No aneurysm is seen. Major intracranial vessels are patent without significant stenosis. IMPRESSION: No major intracranial vascular abnormality is identified. Reviewed, Interpreted and Dictated by Micha Grimaldo III, MD Transcribed by Apoorva Romo Authenticated and [facility]
--- NOTE | 2023-11-26 15:43 | CT_ITS ---
FINAL REPORT TECHNIQUE: Thin-section axial CT with IV contrast supplemented with multi planar reconstruction under CT angiogram protocol was performed of the neck. This study was performed technique to keep radiation doses as low as reasonably achievable, (ALARA). NASCET criteria was utilized during interpretation. CLINICAL HISTORY: Headache, ataxia COMPARISON: None FINDINGS: Aortic arch: Arch shows no significant narrowing. Great vessel origins are widely patent. Right carotid: No significant stenosis is seen at the cervical common or internal carotid artery. There is mild calcified plaque present in the right carotid bifurcation. Left carotid: No significant stenosis is seen at the cervical common or internal carotid artery. There is mild calcified plaque present in the left carotid bifurcation. Vertebrals: Left vertebral artery is dominant. No significant stenosis is present. IMPRESSION: No evidence of significant stenosis or major branch occlusion. Reviewed, Interpreted and Dictated by Micha Grimaldo III, MD Transcribed by Apoorva Romo Authenticated and [facility]
--- NOTE | 2023-11-26 15:43 | CT_ITS ---
FINAL REPORT TECHNIQUE: Then section axial CT images of the chest were obtained with contrast. Three-D reformatted images were also obtained.This study was performed with techniques to keep radiation doses as low as reasonably achievable (ALARA). Individualized dose reduction techniques using automated exposure control or adjustment of mA and/or kV according to the patient's size were employed. CLINICAL HISTORY: Chest pain, headache, ataxia COMPARISON: None FINDINGS: There is no evidence of pulmonary embolism. There is no evidence of thoracic aortic aneurysm or dissection. There is no evidence of mediastinal or hilar mass or adenopathy. There is no evidence of pulmonary mass or suspicious nodule. No localized inflammatory process is seen within the lungs. Mild scarring is noted in the lung oquendo bilaterally. There are several calcified granulomas in the left lung. Limited images of the upper abdomen reveal a prior cholecystectomy. IMPRESSION: No evidence of pulmonary embolism. No mass or localized inflammatory process. Reviewed, Interpreted and Dictated by Micha Grimaldo III, MD Transcribed by Apoorva Romo Authenticated and [facility]
--- NOTE | 2023-11-26 15:50 | PC.NURSE ---
PT TO CT
[2023-11-26 16:18] LABS: Coronavirus 19, PCR Not Detected (NotDetected); Influenza A, PCR Not Detected (NotDetected); Influenza B, PCR Not Detected (NotDetected)
--- NOTE | 2023-11-26 17:17 | PC.NURSE ---
DON SPEAKING WITH DR EDMONDS FOR ADMISSION
--- NOTE | 2023-11-26 17:41 | PC.NURSE ---
report called to [facility]
[2023-11-26 18:14] LABS: Troponin I < 0.01 ng/ml (0.00-0.034)
--- NOTE | 2023-11-26 18:28 | PC.NURSE ---
arrived by w/c from ED
--- NOTE | 2023-11-26 19:46 | EXP.HP ---
History of Present Illness *Admission Date: 11/26/23 *Reason for visit:: Chest pain, ataxia *History of present illness: Really nice patient with past medical history of hypertension, BEATA, hyperlipidemia, on DOAC since April 2023. Patient presents complaining of 2 days worsening chest discomfort. Patient states chest discomfort noticeable yesterday, but became severe 11 AM today. Describes chest discomfort as 5/10, pressure-like, with tightness and jaw, occurring with sweating/ataxia. States that she suffers from intermittent chest discomfort over the last 11 years, but issue acutely worsened over past 48 hours. Admits to abnormal stress test April 2023 they said I had a 5% blockage. States that she was started on Eliquis by cardiology April 2023 for unknown reasons. Also admits to being told she had a heart murmur last week. Denies history of cardiac catheterization. 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 States she has next appointment with cardiology scheduled in December 2023. Admits to granddaughter with COVID 2 weeks ago, but states her and her visited PCP and tested negative for COVID last week. Denies fevers, chills, recent travel, abdominal pain, diarrhea, constipation. Although admits to ataxia denies any serious falls/injuries recently. Patient did complain of severe headache in emergency room. CTA head/neck showed no SAH or acute abnormalities. CT head within normal limits. CTA chest also within normal limits in emergency room. [facility] Disclaimer: The information contained in this section may have been updated after the patient was seen, as this information can be updated by other users. Medical History Apnea Snoring Daytime somnolence Headache Fatigue Palpitations HTN (hypertension) Atypical angina Dyspnea Family History (Updated 11/26/23 @ 18:46 by Stephanie Spaulding RN) Other No significant family history Social History (Updated 11/26/23 @ 18:46 by Stephanie Spaulding RN) Smoking Status: Former smoker alcohol intake: never current occupational status: unemployed Travel in the last 8 weeks: None Review of Systems Review of Systems Review of systems:: pertinent systems reviewed and negative unless documented below Meds Home Medications and Allergies Home Medications ?Medication ?Instructions ?Recorded ?Confirmed ?Type estradiol 1 mg tablet 1 mg PO DAILY 03/31/23 11/26/23 History paroxetine HCl 20 mg tablet 20 mg PO DAILY 03/31/23 11/26/23 History tizanidine 2 mg capsule 2 mg PO DAILY 03/31/23 11/26/23 History lisinopril 40 mg tablet 40 mg PO DAILY #90 tabs 04/02/23 11/26/23 Rx apixaban 5 mg tablet (Eliquis) 5 mg PO BID #60 tabs 05/26/23 11/26/23 Rx diclofenac sodium 1 % topical gel 4 g topical QID PRN pain #100 09/15/23 11/26/23 Rx grams atorvastatin 40 mg tablet 40 mg PO DAILY 11/26/23 11/26/23 History bisoprolol fumarate 10 mg tablet 10 mg PO DAILY 11/26/23 11/26/23 History New Prescriptions to Start Prescriptions: Allergies Allergy/AdvReac Type Severity Reaction Status Date / Time No Known Allergies Allergy Verified 09/15/23 15:05 Exam Data for Last 24 hours Vital signs and Labs for Last 24 Hours: Temp Pulse Resp BP Pulse Ox O2 Del Method 97.9 F 63 18 144/81 H 98 Room Air 11/26/23 18:33 11/26/23 18:33 11/26/23 18:33 11/26/23 18:33 11/26/23 17:30 11/26/23 18:33 Laboratory Results - last 24 hr 11/26/23 13:56: WBC 6.7, RBC 4.52, Hgb 14.1, Hct 43.4, MCV 96.0, MCH 31.3 H, MCHC 32.6, RDW 14.0, Plt Count 276, MPV 8.9, Neut % (Auto) 35.1 L, Lymph % (Auto) 49.0, [place] % (Auto) 10.3 H, Eos % (Auto) 4.0, Baso % (Auto) 1.5, Neut # (Auto) 2.3, Lymph # (Auto) 3.3, [place] # (Auto) 0.7, Eos # (Auto) 0.3, Baso # (Auto) 0.1, Sodium 136, Potassium 4.1, Chloride 104, Carbon Dioxide 28, Anion Gap 8.1, BUN 15, Creatinine 1.00, Estimated Creat Clear 76, Estimated GFR 55 L, Est GFR ( Amer) 66, Gl
[2023-11-26 20:33] LABS: Troponin I < 0.01 ng/ml (0.00-0.034)
[2023-11-27] VITALS: BP 117/63; PULSE 72; PULSE 75; RESP 16; TEMP 36.8; O2SAT 96
[2023-11-27 03:29] LABS: Troponin I < 0.01 ng/ml (0.00-0.034)
[2023-11-27 04:00] VITALS: BP 130/59; PULSE 77; PULSE 80; RESP 20; TEMP 36.6; O2SAT 95; BMI 36.1
--- NOTE | 2023-11-27 05:52 | PC.NURSE ---
Has not had chest pain since admission, no soa,nausea, vomiting. MRI to be scheduled today to R/O CVA. No neuro deficits noted. 02 at 2lnco2 sat . NSR on telemetry. Ambulates to the BR, standby assist.
[2023-11-27 06:43] LABS: Basophils % 0.3 % (0.1-2.0); Hematocrit 39.7 % (37.0-47.0); Hemoglobin 12.8 g/dL (12.2-16.2); Lymphocytes # 1.8 K/mm3 (0.7-4.5); Lymphocytes % 25.7 % (10-50); Mean Corpuscular HGB Conc 32.3 g/dL (31.8-35.4); Mean Corpuscular Hemoglobin 31.5 pg (27.0-31.2); Mean Corpuscular Volume 97.4 fl (81-99); Mean Platelet Volume 9.5 fl (7.4-10.4); Monocytes # 0.2 K/mm3 (0.1-1.0); Monocytes % 2.4 % (1.7-9.3); Neutrophils # 4.9 K/mm3 (1.8-7.8); Neutrophils % 71.5 % (37.0-80.0); Platelet Count 259 K/mm3 (142-424); Red Blood Count 4.07 M/mm3 (4.20-5.40); Red Cell Distribution Width 14.1 % (11.5-17.5); White Blood Count 6.9 K/mm3 (4.8-10.8)
[2023-11-27 06:45] LABS: Alanine Aminotransferase 37 U/L (12-78); Albumin Level 3.5 g/dl (3.5-5.0); Albumin/Globulin Ratio 1.3 (1.1-1.8); Alkaline Phosphatase 57 U/L (38-126); Anion Gap 10.3 mEq/L (5-15); Aspartate Amino Transferase 36 U/L (14-36); Bilirubin,Total 0.3 mg/dl (0.2-1.3); Blood Urea Nitrogen 15 mg/dl (7-17); Calcium 8.1 mg/dl (8.4-10.2); Carbon Dioxide 20 mmol/L (22.0-30.0); Chloride 108 mmol/L (98-107); Chol/HDL Ratio 4.6 (1-3.5); Cholesterol 179 mg/dl (140-200); Creatinine Clearance Estimated 77 mL/min (50-200); Estimated Glomerular Filt Rate 83 ml/min (>60); GFR (African American) 100 ML/MIN (>60); Globulin 2.6 g/dL (1.3-3.2); Glucose 156 mg/dl (74-100); HDL Cholesterol 39 mg/dl (40-60); Magnesium 1.9 mg/dl (1.6-2.3); Potassium 4.3 mmoL/L (3.5-5.1); Sodium 134 mmol/L (136-145); Total Protein,Serum 6.1 g/dl (6.3-8.2); Triglycerides 288 mg/dl (30-150); VLDL Cholesterol 58 mg/dL (0-40)
[2023-11-27 06:56] LABS: Direct LDL Cholesterol 88.85 mg/dL (100-129)
[2023-11-27 07:34] VITALS: BP 122/68; PULSE 67; RESP 18; TEMP 36.9; O2SAT 93
--- NOTE | 2023-11-27 07:42 | MR_ITS ---
FINAL REPORT CLINICAL HISTORY: ATAXIA, RULE OUT STROKE, headache FINDINGS: Multiplanar MR imaging of the brain was performed without contrast. There is mild age-appropriate atrophy. There are scattered foci of increased T2 signal in the cerebral white matter that have a nonspecific appearance but likely represent mild chronic ischemic/gliotic changes. There is no evidence of intracranial hemorrhage or mass. No abnormal ventricular dilatation is identified. No abnormal extra-axial fluid collection is seen. No abnormality is seen on the diffusion weighted images. The posterior fossa and brainstem are unremarkable. Normal major vessel vascular flow voids are seen. IMPRESSION: Age-appropriate atrophy and mild chronic ischemic/gliotic changes. No acute intracranial abnormality. Reviewed, Interpreted and Dictated by Micha Grimaldo III, MD Transcribed by Ashley Webb Authenticated and . [facility]
[2023-11-27 08:00] VITALS: PULSE 80
--- NOTE | 2023-11-27 08:04 | HMH.PHAINT1 ---
Pharmacy Intervention Comments: MEDICATION RECONCILIATION COMPLETED ON PATIENT USING EXTERNAL FILL HISTORY FORM PHARMACY. -ESTHER ESPINAL, SURYD
--- NOTE | 2023-11-27 10:55 | P.PN_ITS ---
Exam Data for Last 24 hours Vital signs and Labs for Last 24 Hours: Temp Pulse Resp BP Pulse Ox O2 Del Method O2 Flow Rate 98.5 F 80 18 122/68 93 L Nasal Cannula 2 11/27/23 07:34 11/27/23 08:00 11/27/23 07:34 11/27/23 07:34 11/27/23 07:34 11/27/23 08:31 11/27/23 08:31 Laboratory Results - last 24 hr 11/26/23 13:56: WBC 6.7, RBC 4.52, Hgb 14.1, Hct 43.4, MCV 96.0, MCH 31.3 H, MCHC 32.6, RDW 14.0, Plt Count 276, MPV 8.9, Neut % (Auto) 35.1 L, Lymph % (Auto) 49.0, [place] % (Auto) 10.3 H, Eos % (Auto) 4.0, Baso % (Auto) 1.5, Neut # (Auto) 2.3, Lymph # (Auto) 3.3, [place] # (Auto) 0.7, Eos # (Auto) 0.3, Baso # (Auto) 0.1, Sodium 136, Potassium 4.1, Chloride 104, Carbon Dioxide 28, Anion Gap 8.1, BUN 15, Creatinine 1.00, Estimated Creat Clear 76, Estimated GFR 55 L, Est GFR ( Amer) 66, Glucose 111 H, Calcium 8.9, Magnesium 1.9, Total Bilirubin 0.6, AST 35, ALT 30, Alkaline Phosphatase 64, Troponin I < 0.01, Total Protein 7.1, Albumin 4.2, Globulin 2.9, Albumin/Globulin Ratio 1.4 11/26/23 16:12: SARS-CoV-2 (PCR) Not detected, Influenza A Untype (PCR) Not detected, Influenza Type B (PCR) Not detected 11/26/23 17:25: Troponin I < 0.01 11/26/23 19:50: Troponin I < 0.01 11/27/23 02:30: Troponin I < 0.01 11/27/23 05:51: WBC 6.9, RBC 4.07 L, Hgb 12.8, Hct 39.7, MCV 97.4, MCH 31.5 H, MCHC 32.3, RDW 14.1, Plt Count 259, MPV 9.5, Neut % (Auto) 71.5, Lymph % (Auto) 25.7, [place] % (Auto) 2.4, Eos % (Auto) 0.0 L, Baso % (Auto) 0.3, Neut # (Auto) 4.9, Lymph # (Auto) 1.8, [place] # (Auto) 0.2, Eos # (Auto) 0.0, Baso # (Auto) 0.0, Sodium 134 L, Potassium 4.3, Chloride 108 H, Carbon Dioxide 20 L, Anion Gap 10.3, BUN 15, Creatinine 0.70 D, Estimated Creat Clear 77, Estimated GFR 83, Est GFR ( Amer) 100 D, Glucose 156 H D, Calcium 8.1 L, Magnesium 1.9, Total Bilirubin 0.3, AST 36, ALT 37, Alkaline Phosphatase 57, Total Protein 6.1 L, Albumin 3.5 D, Globulin 2.6, Albumin/Globulin Ratio 1.3, Triglycerides 288 H , Cholesterol 179, LDL Cholesterol Direct 88.85 L, VLDL Cholesterol 58 H, HDL Cholesterol 39 L, Cholesterol/HDL Ratio 4.6 H I & O for Last 24 hours: Intake & Output 11/24/23 11/25/23 11/26/23 11/27/23 23:59 23:59 23:59 23:59 Intake Total 603 / 603 Output Total 0 / 0 0 / 0 Balance 0 / 393 603 / 603 Weight 204 lb 204 lb 1.6 oz Progress Note: A&P Assessment and plan (1) Ataxia: Status: Acute (2) Dizziness: Status: Acute (3) Headache: Status: Acute (4) HTN (hypertension): Status: Acute (5) Atypical angina: Status: Acute (6) Chest pressure: Status: Acute
--- NOTE | 2023-11-27 10:55 | EXP.CARD.CON ---
History of Present Illness History of Present Illness Consult date: 11/27/23 Requesting physician: Pablo Rodriguez Consult reason: chest pain Chief complaint: Chest pain History of present illness: 68-year-old white female established patient of our office with history of paroxysmal atrial fibrillation, presented to the emergency room and admitted overnight for evaluation of ongoing chest pain which is why we are consulted. Patient was seen in our office for evaluation of chest pain earlier this year. She had a abnormal stress test underwent left heart cath which showed nonobstructive disease. Heart monitor later revealed atrial fibrillation and she was started on beta-denise and OAC. She has not been seen since May of this year at which time we had ordered a home sleep study. Patient's BMI is 36 and she has witnessed apnea by her and is noted to be hypoxic overnight while admitted here. Patient's ER workup for chest pain has been benign. She has normal serial troponins, EKG shows sinus rhythm without ischemia or ectopy and her CTA is negative. She reports feeling better this morning. She admits she is very anxious about chest pain as her father of an AL at age 67. She admits she has symptomatic palpitations every other day which are frightening to her but has been in sinus rhythm since admission here. [facility] Disclaimer: The information contained in this section may have been updated after the patient was seen, as this information can be updated by other users. Medical History Apnea Snoring Daytime somnolence Headache Fatigue Palpitations HTN (hypertension) Atypical angina Dyspnea Family History Other No significant family history Social History Smoking Status: Former smoker alcohol intake: never current occupational status: unemployed Travel in the last 8 weeks: None Review of Systems Constitutional Constitutional: Denies fatigue and Denies weakness Eyes Eyes: Denies loss of vision ENT Ears, Nose, Mouth, and Throat: Denies hearing loss and Denies vertigo *Cardiovascular Cardiovascular: Denies chest pain, Denies dyspnea and Denies syncope *Respiratory Respiratory: Denies cough and Denies dyspnea *Gastrointestinal Gastrointestinal: Denies change in stool character, Denies nausea and Denies vomiting *Musculoskeletal Musculoskeletal: Denies muscle weakness Integumentary/Breasts Skin/Breast: Denies changing lesions *Neurologic Neurologic: Denies loss of vision, Denies syncope, Denies vertigo and Denies weakness Endocrine Endocrine: Denies fatigue Exam Data for Last 24 hours Vital signs and Labs for Last 24 Hours: Temp Pulse Resp BP Pulse Ox O2 Del Method O2 Flow Rate 98.5 F 80 18 122/68 93 L Nasal Cannula 2 11/27/23 07:34 11/27/23 08:00 11/27/23 07:34 11/27/23 07:34 11/27/23 07:34 11/27/23 08:31 11/27/23 08:31 Laboratory Results - last 24 hr 11/26/23 13:56: WBC 6.7, RBC 4.52, Hgb 14.1, Hct 43.4, MCV 96.0, MCH 31.3 H, MCHC 32.6, RDW 14.0, Plt Count 276, MPV 8.9, Neut % (Auto) 35.1 L, Lymph % (Auto) 49.0, [place] % (Auto) 10.3 H, Eos % (Auto) 4.0, Baso % (Auto) 1.5, Neut # (Auto) 2.3, Lymph # (Auto) 3.3, [place] # (Auto) 0.7, Eos # (Auto) 0.3, Baso # (Auto) 0.1, Sodium 136, Potassium 4.1, Chloride 104, Carbon Dioxide 28, Anion Gap 8.1, BUN 15, Creatinine 1.00, Estimated Creat Clear 76, Estimated GFR 55 L, Est GFR ( Amer) 66, Glucose 111 H, Calcium 8.9, Magnesium 1.9, Total Bilirubin 0.6, AST 35, ALT 30, Alkaline Phosphatase 64, Troponin I < 0.01, Total Protein 7.1, Albumin 4.2, Globulin 2.9, Albumin/Globulin Ratio 1.4 11/26/23 16:12: SARS-CoV-2 (PCR) Not detected, Influenza A Untype (PCR) Not detected, Influenza Type B (PCR) Not detected 11/26/23 17:25: Troponin I < 0.01 11/26/23 19:50: Troponin I < 0.01 11/27/23 02:30: Tro
[2023-11-27 11:44] VITALS: BP 120/56; PULSE 57; RESP 18; TEMP 36.6; O2SAT 96
--- NOTE | 2023-11-27 14:19 | EXP.DC.SUM ---
General Admission date:: 11/26/23 Discharge date: 11/27/23 HPI HPI HPI: Really nice patient with past medical history of hypertension, BEATA, hyperlipidemia, on DOAC since April 2023. Patient presents complaining of 2 days worsening chest discomfort. Patient states chest discomfort noticeable yesterday, but became severe 11 AM today. Describes chest discomfort as 5/10, pressure-like, with tightness and jaw, occurring with sweating/ataxia. States that she suffers from intermittent chest discomfort over the last 11 years, but issue acutely worsened over past 48 hours. Admits to abnormal stress test April 2023 they said I had a 5% blockage. States that she was started on Eliquis by cardiology April 2023 for unknown reasons. Also admits to being told she had a heart murmur last week. Denies history of cardiac catheterization. 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 States she has next appointment with cardiology scheduled in December 2023. Admits to granddaughter with COVID 2 weeks ago, but states her and her visited PCP and tested negative for COVID last week. Denies fevers, chills, recent travel, abdominal pain, diarrhea, constipation. Although admits to ataxia denies any serious falls/injuries recently. Patient did complain of severe headache in emergency room. CTA head/neck showed no SAH or acute abnormalities. CT head within normal limits. CTA chest also within normal limits in emergency room. Hospital Course Hospital Course Hospital Course: Patient presented to hospital complaining of chest discomfort, ataxia, headache. Patient diagnosed with patient had serial troponins done within normal limits. Chronic angina, and received ACS workup during hospitalization. Patient had CTA chest done showing no pulmonary embolus or acute chest abnormalities. Patient seen by cardiology, with echocardiogram done showing aortic stenosis. Patient will follow-up lead sales consultant as outpatient. Patient also started on Ranexa by cardiology which was continued at time of hospital discharge. The patient will continue Eliquis as outpatient for atrial fibrillation management. Patient also presented to hospital complaining of headache. Patient had CTA head/neck done showing no subarachnoid hemorrhage. CT brain also within normal limits at time of hospital admission. MRI brain 11/26 showed no acute CVA. Patient's ataxia/headache improved with as needed medications during hospitalization. Patient diagnosed with migraine headache, and advised to follow-up with primary care physician as outpatient. Patient declined need for physical therapy/Occupational Therapy during hospitalization. Patient's also present during hospitalization, and stated patient was fine to discharge home with him without need of PT/OT services. Exam Data for Last 24 hours Vital signs and Labs for Last 24 Hours: Temp Pulse Resp BP Pulse Ox O2 Del Method O2 Flow Rate 97.9 F 57 L 18 120/56 L 96 Room Air 2 11/27/23 11:44 11/27/23 11:44 11/27/23 11:44 11/27/23 11:44 11/27/23 11:44 11/27/23 14:10 11/27/23 08:31 Laboratory Results - last 24 hr 11/26/23 13:56: WBC 6.7, RBC 4.52, Hgb 14.1, Hct 43.4, MCV 96.0, MCH 31.3 H, MCHC 32.6, RDW 14.0, Plt Count 276, MPV 8.9, Neut % (Auto) 35.1 L, Lymph % (Auto) 49.0, [place] % (Auto) 10.3 H, Eos % (Auto) 4.0, Baso % (Auto) 1.5, Neut # (Auto) 2.3, Lymph # (Auto) 3.3, [place] # (Auto) 0.7, Eos # (Auto) 0.3, Baso # (Auto) 0.1, Magnesium 1.9, Troponin I < 0.01 11/26/23 16:12: SARS-CoV-2 (PCR) Not detected, Influenza A Untype (PCR) Not detected, Influenza Type B (PCR) Not detected 11/26/23 17:25: Troponin I < 0.01 11/26/23 19:50: Troponin I < 0.01 11/27/23 02:30: Troponin I < 0.01 11/27/23 05:51: WBC 6.9, RBC 4.07 L, Hgb 12.8, Hct 39.7, MCV 97.4, MCH 31.5 H, MCHC 32.3, RDW 14.1, Plt Count 259, MPV 9.5, Neut % (Auto) 71.5, Lymph % (Auto) 25.7, [place] % (Auto) 2.4, Eos % (Auto) 0.0 L, Baso % (Auto) 0.3, Neut # (Auto)
--- NOTE | 2023-11-28 14:31 | SW/DCPLANNER ---
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 Patient does not have any further needs/questions at this time.
== END 2023-11-27 15:35 | disposition home or self-care (01) ==
LOC: ER 17:19 → 2ND 17:28
PROVIDERS: Emergency Medicine; Physician Assistant; Admitting Provider Internal Medicine; Emergency Provider Emergency Medicine; PCP Nurse Practitioner Family; Visit Provider Internal Medicine
DX: R07.89 Other chest pain (principal); R27.0 Ataxia, unspecified; G43.909 Migraine, unspecified, not intractable, without status migrainosus; I10 Essential (primary) hypertension; I20.1 Angina pectoris with documented spasm; I48.0 Paroxysmal atrial fibrillation; G47.33 Obstructive sleep apnea (adult) (pediatric); E66.9 Obesity, unspecified; Z68.36 Body mass index [BMI] 36.0-36.9, adult; Z87.891 Personal history of nicotine dependence; E78.5 Hyperlipidemia, unspecified; Z79.01 Long term (current) use of anticoagulants
CPT/HCPCS: 36415; 70450; 70496; 70498; 70551; 71046; 71275; 80053; 80061; 83735; 84484; 85025; 87636; 93005; 99285; G0378; J0131; J1100; J1200; J1650; J1885; J2405; J7030; J7120; Q9967